=== PATIENT | female | born 1995 | race Caucasian/White ===

== ENCOUNTER 2017-02-05 14:53 | Emergency (ER) | payer OTHER ==
[~2017-02-05] VITALS: Ht 157.5 cm; Wt 90.7 kg
[2017-02-05 15:56] VITALS: BP 118/67
--- NOTE | 2017-02-05 16:04 | REP ---
LEFT HAND, FOUR VIEWS: There is no evidence of an acute fracture, dislocation or intrinsic bone disease. IMPRESSION: No fracture or dislocation. Signed by Fred Guido MD 02/05/2017 08:12 P
== END 2017-02-05 16:07 | disposition home or self-care (01) ==
LOC: M ED 15:48
DX: S60.222A Contusion of left hand, initial encounter (principal); W23.0XXA Caught, crushed, jammed, or pinched between moving objects, initial encounter; Y92.89 Other specified places as the place of occurrence of the external cause; Y93.89 Activity, other specified; Y99.0 Civilian activity done for income or pay; E66.9 Obesity, unspecified; Z91.040 Latex allergy status

== ENCOUNTER 2017-05-19 13:38 | Emergency (ER) | payer OTHER ==
[~2017-05-19] VITALS: Ht 154.9 cm; Wt 90.9 kg
[2017-05-19 16:19] LABS: BASO % 0.4 % (0.0-1.0); EOS # 0.2 K/mm3 (0.0-0.50); EOS % 2.5 % (0.0-3.0); LARGE UNSTAINED CELL # 0.1 K/mm3 (0.0-0.4); LYMPH # 2.2 K/mm3 (1.5-6.5); LYMPH % 29.4 % (24.0-44.0); MEAN CORPUSCULAR HEMOGLOBIN 26.1 pg (27.0-33.0); MEAN CORPUSCULAR HGB CONC 32.7 g/dl (32.0-36.5); MEAN CORPUSCULAR VOLUME 79.9 fl (80.0-96.0); MONO # 0.4 K/mm3 (0.0-0.8); MONO % 5.2 % (0.0-5.0); NEUTROPHILS # 4.4 K/mm3 (1.8-7.7); NEUTROPHILS % 61.5 % (36.0-66.0); PLATELET COUNT, AUTOMATED 376 k/mm3 (150-450); RED CELL DISTRIBUTION WIDTH 14.1 % (11.5-14.5); WHITE BLOOD COUNT 7.2 K/mm3 (4.0-10.0)
[2017-05-19 16:30] LABS: ALBUMIN 3.6 GM/DL (3.2-5.2); ALBUMIN/GLOBULIN RATIO 0.84 (1.00-1.93); ALKALINE PHOSPHATASE 142 U/L (45-117); ALT/SGPT 20 U/L (12-78); ANION GAP 10 MEQ/L (8-16); AST/SGOT 16 U/L (15-37); BILIRUBIN,DIRECT < 0.1 MG/DL (0.0-0.2); BILIRUBIN,TOTAL 0.2 MG/DL (0.2-1.0); BLOOD UREA NITROGEN 8 MG/DL (7-18); CALCIUM LEVEL 8.8 MG/DL (8.5-10.1); CARBON DIOXIDE LEVEL 26 MEQ/L (21-32); CHLORIDE LEVEL 105 MEQ/L (98-107); GLUCOSE, FASTING 88 MG/DL (70-105); POTASSIUM SERUM 3.8 MEQ/L (3.5-5.1); SODIUM LEVEL 141 MEQ/L (136-145); TOTAL PROTEIN 7.9 GM/DL (6.4-8.2)
[2017-05-19 17:12] VITALS: BP 121/75
--- NOTE | 2017-05-20 08:14 | REP ---
PELVIC ENDOVAGINAL PROBE ULTRASOUND: 05/19/2017. Clinical history: Abnormal vaginal bleeding. Findings: There are no prior studies. Abdominal and endovaginal probes utilized. The bladder was empty for visualization of the uterus and adnexa present. Apparently the patient was allowed to void just before coming to ultrasound. The endovaginal probe was then performed. Uterus measured 8.4 x 4.5 x 5.1 cm. Endometrial stripe has thickened appearance at 10 mm. There is no fluid in the endometrial cavity. A few Nabothian cysts are noted. There is a trace amount of free fluid in the cul-de-sac. The right ovary is 2.6 x 1.4 x 1.7 cm. Left ovary 2.7 x 2.8 x 2.4 cm. Each shows Doppler tracing with resistive index 0.47 on the right and 0.69 of the left, both normal. There is no adnexal mass or fluid adjacent to the adnexa. A few tiny cysts are seen in the ovaries. Impression: 1. Retroflexed uterus with endometrial stripe having thickened appearance and a 10 mm diameter. No fluid endometrial cavity or endocervical canal. 2. Nabothian cysts in the cervix. Trace fluid in the cul-de-sac. 3. Ovaries fairly symmetric with normal blood flow, no torsion or mass. No cyst. There are a few subcentimeter follicles in each ovary. Signed by Ramakrishna Gonzalez MD 05/20/2017 05:44 P
== END 2017-05-19 17:18 | disposition home or self-care (01) ==
LOC: M ED 13:38
DX: N93.8 Other specified abnormal uterine and vaginal bleeding (principal); Z87.891 Personal history of nicotine dependence

== ENCOUNTER 2017-07-13 20:15 | Emergency (ER) | payer OTHER ==
[~2017-07-13] VITALS: Ht 156.2 cm; Wt 86.4 kg
[2017-07-13 20:16] VITALS: BP 151/85
[2017-07-13] MEDS ORDERED: VITA500T53 PO (20:32)
== END 2017-07-14 00:07 | disposition left against medical advice (07) ==
LOC: M ED 20:15
DX: R10.32 Left lower quadrant pain (principal)

== ENCOUNTER → 2017-11-27 | Outpatient (REF) | payer OTHER | LOC: M SFHCLERA 11:23 | DX: J02.9 Acute pharyngitis, unspecified (principal) ==

== ENCOUNTER 2018-02-11 15:50 | Outpatient (CLI) | payer OTHER | END 2018-02-11 16:50 | disposition home or self-care (01) | LOC: M LDO 15:50 | DX: O26.892 Other specified pregnancy related conditions, second trimester (principal); Z3A.22 22 weeks gestation of pregnancy | CPT/HCPCS: 59025 ==

== ENCOUNTER 2018-02-17 15:03 | Outpatient (CLI) | payer OTHER | END 2018-02-17 16:22 | disposition home or self-care (01) | LOC: M LDO 15:03 | DX: O26.892 Other specified pregnancy related conditions, second trimester (principal); Z3A.23 23 weeks gestation of pregnancy; Z91.040 Latex allergy status; R10.9 Unspecified abdominal pain | CPT/HCPCS: G0463 ==

== ENCOUNTER 2018-02-20 19:52 | Outpatient (CLI) | payer OTHER ==
[2018-02-20 21:42] LABS: APPEARANCE, URINE HAZY (CLEAR); BACTERIA, URINE AUTO 1+ (NEGATIVE); BILIRUBIN, URINE AUTO NEGATIVE (NEGATIVE); BLOOD, URINE BLOOD NEGATIVE (NEGATIVE); COLOR, URINE YELLOW (YELLOW); GLUCOSE, URINE (UA) AUTO NEGATIVE (NEGATIVE); KETONE, URINE AUTO TRACE mg/dL (NEGATIVE); LEUKOCYTE ESTERASE, URINE AUTO NEGATIVE (NEGATIVE); MUCUS, URINE SMALL (NEGATIVE); NITRITE, URINE AUTO NEGATIVE (NEGATIVE); PROTEIN, URINE AUTO NEGATIVE (NEGATIVE); RBC, URINE AUTO 2 /HPF (0-3); SPECIFIC GRAVITY URINE AUTO 1.025 (1.002-1.035); SQUAMOUS EPITHELIAL CELL UR AU 2 /HPF (0-6); UROBILINOGEN, URINE AUTO 0.2 mg/dL (0.0-2.0); WBC, URINE AUTO 3 /HPF (0-3)
== END 2018-02-20 22:10 | disposition home or self-care (01) ==
LOC: M LDO 19:52
DX: O26.892 Other specified pregnancy related conditions, second trimester (principal); R10.30 Lower abdominal pain, unspecified; R30.9 Painful micturition, unspecified; Z3A.23 23 weeks gestation of pregnancy
CPT/HCPCS: G0463

== ENCOUNTER 2018-04-20 17:41 | Outpatient (CLI) | payer OTHER ==
[2018-04-20 18:45] LABS: HEMATOCRIT 31.9 % (36.0-47.0); HEMOGLOBIN 10.3 g/dl (12.0-15.5); MEAN CORPUSCULAR HEMOGLOBIN 25.2 pg (27.0-33.0); MEAN CORPUSCULAR HGB CONC 32.3 g/dl (32.0-36.5); PLATELET COUNT, AUTOMATED 359 10^3/uL (150-450); RED BLOOD COUNT 4.09 10^6/uL (4.00-5.40); RED CELL DISTRIBUTION WIDTH 13.6 % (11.5-14.5); WHITE BLOOD COUNT 11.4 10^3/uL (4.0-10.0)
[2018-04-20 18:58] LABS: INR 0.99; PROTHROMBIN TIME 13.2 SECONDS (12.1-14.4)
[2018-04-20 18:59] LABS: FIBRINOGEN 538 MG/DL (221-452); PARTIAL THROMBOPLASTIN TIME 28.3 SECONDS (25.4-37.6)
[2018-04-20] MEDS ORDERED: LACTATED RINGER'S 1000 ML IV (20:09)
[2018-04-20] MEDS ORDERED: LR 1,000 ML IV (20:09)
[2018-04-21] MEDS: raNITIdine SYRUP 150 MG/10 ML UDC GT (02:50)
[2018-04-21 03:32] LABS: HEMATOCRIT 29.4 % (36.0-47.0); HEMOGLOBIN 9.3 g/dl (12.0-15.5); MEAN CORPUSCULAR HEMOGLOBIN 24.8 pg (27.0-33.0); MEAN CORPUSCULAR HGB CONC 31.6 g/dl (32.0-36.5); MEAN CORPUSCULAR VOLUME 78.4 fl (80.0-96.0); PLATELET COUNT, AUTOMATED 310 10^3/uL (150-450); RED BLOOD COUNT 3.75 10^6/uL (4.00-5.40); RED CELL DISTRIBUTION WIDTH 13.6 % (11.5-14.5); WHITE BLOOD COUNT 10.6 10^3/uL (4.0-10.0)
[2018-04-21 04:05] LABS: INR 0.93; PROTHROMBIN TIME 12.6 SECONDS (12.1-14.4)
[2018-04-21 04:06] LABS: FIBRINOGEN 486 MG/DL (221-452); PARTIAL THROMBOPLASTIN TIME 29.1 SECONDS (25.4-37.6)
[2018-04-21 09:17] LABS: HEMATOCRIT 28.7 % (36.0-47.0); HEMOGLOBIN 9.2 g/dl (12.0-15.5); MEAN CORPUSCULAR HEMOGLOBIN 25.2 pg (27.0-33.0); MEAN CORPUSCULAR HGB CONC 32.1 g/dl (32.0-36.5); MEAN CORPUSCULAR VOLUME 78.6 fl (80.0-96.0); PLATELET COUNT, AUTOMATED 297 10^3/uL (150-450); RED BLOOD COUNT 3.65 10^6/uL (4.00-5.40); RED CELL DISTRIBUTION WIDTH 13.7 % (11.5-14.5); WHITE BLOOD COUNT 8.3 10^3/uL (4.0-10.0)
[2018-04-21 09:28] LABS: INR 0.92; PROTHROMBIN TIME 12.5 SECONDS (12.1-14.4)
[2018-04-21 09:29] LABS: FIBRINOGEN 455 MG/DL (221-452); PARTIAL THROMBOPLASTIN TIME 27.2 SECONDS (25.4-37.6)
== END 2018-04-21 18:00 | disposition home or self-care (01) ==
LOC: M LDO 17:41
DX: O99.89 Other specified diseases and conditions complicating pregnancy, childbirth and the puerperium (principal); Z3A.33 33 weeks gestation of pregnancy; V43.52XA Car driver injured in collision with other type car in traffic accident, initial encounter
CPT/HCPCS: 76815

== ENCOUNTER 2018-05-07 17:15 | Outpatient (CLI) | payer OTHER | END 2018-05-07 19:10 | disposition home or self-care (01) | LOC: M LDO 17:15 | DX: O26.893 Other specified pregnancy related conditions, third trimester (principal); Z3A.34 34 weeks gestation of pregnancy; O62.0 Primary inadequate contractions | CPT/HCPCS: 59025 ==

== ENCOUNTER 2018-05-16 20:33 | Outpatient (CLI) | payer OTHER ==
[2018-05-16 21:56] LABS: HEMATOCRIT 31.3 % (36.0-47.0); HEMOGLOBIN 9.7 g/dl (12.0-15.5); MEAN CORPUSCULAR HEMOGLOBIN 23.5 pg (27.0-33.0); PLATELET COUNT, AUTOMATED 330 10^3/uL (150-450); RED BLOOD COUNT 4.12 10^6/uL (4.00-5.40); RED CELL DISTRIBUTION WIDTH 14.5 % (11.5-14.5); WHITE BLOOD COUNT 9.5 10^3/uL (4.0-10.0)
[2018-05-16 22:28] LABS: FIBRINOGEN 493 MG/DL (221-452); PARTIAL THROMBOPLASTIN TIME 26.6 SECONDS (25.4-37.6); PROTHROMBIN TIME 13.3 SECONDS (12.1-14.4)
[2018-05-17] MEDS: CALCIUM CARBONATE 500 MG CHEW U/D PO (03:45)
[2018-05-17 04:55] LABS: HEMATOCRIT 29.9 % (36.0-47.0); HEMOGLOBIN 9.3 g/dl (12.0-15.5); MEAN CORPUSCULAR HEMOGLOBIN 23.4 pg (27.0-33.0); MEAN CORPUSCULAR HGB CONC 31.1 g/dl (32.0-36.5); MEAN CORPUSCULAR VOLUME 75.1 fl (80.0-96.0); PLATELET COUNT, AUTOMATED 325 10^3/uL (150-450); RED BLOOD COUNT 3.98 10^6/uL (4.00-5.40); RED CELL DISTRIBUTION WIDTH 14.5 % (11.5-14.5); WHITE BLOOD COUNT 10.6 10^3/uL (4.0-10.0)
[2018-05-17 05:13] LABS: INR 0.97
[2018-05-17 05:14] LABS: FIBRINOGEN 459 MG/DL (221-452); PARTIAL THROMBOPLASTIN TIME 27.7 SECONDS (25.4-37.6)
== END 2018-05-17 06:40 | disposition home or self-care (01) ==
LOC: M LDO 20:33
DX: O99.89 Other specified diseases and conditions complicating pregnancy, childbirth and the puerperium (principal); Z3A.35 35 weeks gestation of pregnancy; W10.9XXA Fall (on) (from) unspecified stairs and steps, initial encounter
CPT/HCPCS: 59025

== ENCOUNTER 2018-05-22 15:47 | Outpatient (CLI) | payer OTHER | END 2018-05-22 17:12 | disposition home or self-care (01) | LOC: M LDO 15:47 | DX: O47.03 False labor before 37 completed weeks of gestation, third trimester (principal); Z3A.36 36 weeks gestation of pregnancy | CPT/HCPCS: 76815 ==

== ENCOUNTER 2018-05-27 16:26 | Outpatient (CLI) | payer OTHER | END 2018-05-27 17:41 | disposition home or self-care (01) | LOC: M LDO 16:26 | DX: O47.1 False labor at or after 37 completed weeks of gestation (principal); Z3A.37 37 weeks gestation of pregnancy; O99.213 Obesity complicating pregnancy, third trimester | CPT/HCPCS: 59025 ==

== ENCOUNTER 2018-11-21 21:23 | Emergency (ER) | payer OTHER ==
[~2018-11-21] VITALS: Ht 154.9 cm; Wt 81.8 kg
[~2018-11-21 21:23] MED LIST: ACET1TAB55 PO; BENA25CA4 PO; IBUP-1022 PO; MAPA500T2 PO; OXYC1TAB23 PO; PREN27TA3 PO; PRENTAB9 PO; RANI15TA PO; VITA500T53 PO; ZANTTAB PO
--- NOTE | 2018-11-22 01:07 | REP ---
Clinical: Trauma. Technique: AP, lateral, bilateral oblique and sunrise views left knee . Findings: The osseous structures and joint spaces are intact and normal. There is no evidence for acute fracture or dislocation. No joint effusion is appreciated. Surrounding soft tissues are unremarkable. No subcutaneous emphysema or radiodense foreign body. Impression: Normal examination. No acute fracture or dislocation. Electronically Signed by Geronimo Smith MD 11/22/2018 12:58 A
[2018-11-22] MEDS ORDERED: NAPR-50 PO (01:43)
[2018-11-22 01:57] VITALS: BP 126/59
== END 2018-11-22 02:03 | disposition home or self-care (01) ==
LOC: M ED 21:23
DX: M79.662 Pain in left lower leg (principal); Z79.899 Other long term (current) drug therapy; Z91.040 Latex allergy status